=== PATIENT | male | born 1960 | race Caucasian/White ===

== ENCOUNTER 2019-02-03 10:01 | Emergency (ER) | payer MEDICAID ==
[~2019-02-03] VITALS: Ht 167.6 cm; Wt 90.7 kg
--- NOTE | 2019-02-03 10:23 | NUR ---
Patient ambulated to bed 8. RN evaluating patient at bedside.
[2019-02-03 10:25] VITALS: BP 103/45
--- NOTE | 2019-02-03 10:30 | NUR ---
PATIENT PRESENTS TO ED WITH C/O DIZZINESS WITH CHEST DISCOMFORT X 1 DAY. DIZZINESS GET WORSE WHEN WALKING. DENIES PMH . LUNGS CLEAR BL; HR EVEN AND REGULAR; DENIES PAIN VSS; PATIENT POSITIONED FOR COMFORT; HOB ELEVATED; BEDRAILS UP X2; BED DOWN. ER MD MADE AWARE OF PT STATUS.
--- NOTE | 2019-02-03 11:50 | NUR ---
Patient being evaluated by physician at bedside.
[2019-02-03] MEDS ORDERED: NACL 0.9% 1,000 ML IV ONE (12:00)
[2019-02-03] MEDS ORDERED: KETOROLAC 30 MG/ML VIAL IVP ONE (12:00)
--- NOTE | 2019-02-03 12:06 | NUR ---
data technician at bedside.
[2019-02-03 12:43] LABS: BASOPHILS % (AUTO) 0.4 % (0.0-2.0); EOSINOPHILS # (AUTO) 0.1 K/uL (0-0.4); EOSINOPHILS % (AUTO) 1.4 % (0.0-4.0); HEMATOCRIT 48.5 % (36-52); HEMOGLOBIN 15.7 g/dL (12.0-18.0); LYMPHOCYTES # (AUTO) 2.3 K/uL (2.0-11.5); LYMPHOCYTES % (AUTO) 23.8 % (20.5-51.1); MEAN CORPUSCULAR HEMOGLOBIN 27 pg (27-31); MEAN CORPUSCULAR HGB CONC 32 g/dL (33-37); MEAN CORPUSCULAR VOLUME 82.9 fL (80-94); MONOCYTES # (AUTO) 0.9 K/uL (0.8-1.0); MONOCYTES % (AUTO) 8.8 % (1.7-9.3); NEUTROPHILS # (AUTO) 6.5 K/uL (1.8-7.7); NEUTROPHILS % (AUTO) 65.6 % (42.2-75.2); PLATELET COUNT (AUTO) 248 K/uL (140-450); RED BLOOD CELL COUNT(AUTO) 5.84 MIL/uL (4.20-6.10); RED CELL DISTRIBUTION WIDTH 15.4 % (11.6-13.7); WHITE BLOOD COUNT (AUTO) 9.8 K/uL (4.8-10.8)
--- NOTE | 2019-02-03 13:24 | NUR ---
NS BOLUS COMPLETED, PT IS ASLEEP IN BED, VSS, NO S/S OF PAIN, NO S/S OF DISTRESS.
[2019-02-03 13:51] LABS: ANION GAP 11.1 (8-16); CARBON DIOXIDE 30.1 mmol/L (21-32); CHLORIDE 104 mmol/L (98-107); GLUCOSE 113 mg/dL (74-106); POTASSIUM 4.2 mmol/L (3.5-5.1); SODIUM SERUM 141 mmol/L (136-145)
[2019-02-03 13:52] LABS: ASPARTATE AMINOTRANSFERASE 26 U/L (15-37); CREATININE 0.8 mg/dL (0.7-1.3); GFR ARICAN-AMERICAN 128 mL/min (>90); TOTAL BILIRUBIN 0.4 mg/dL (0.0-1.0); UREA NITROGEN, BLOOD 9 mg/dL (7-18)
[2019-02-03 13:53] LABS: ALBUMIN 3.9 g/dL (3.4-5.0); FREE T4 (FREE THYROXINE) 1.04 ng/dL (0.76-1.46)
[2019-02-03 14:32] LABS: APPEARANCE,URINE CLEAR (CLEAR); BILIRUBIN,URINE NEGATIVE (NEGATIVE); BLOOD, URINE NEGATIVE (NEGATIVE); COLOR,URINE YELLOW (YELLOW); LEUKOCYTE ESTERASE ,URINE NEGATIVE (NEGATIVE); NITRITE, URINE NEGATIVE (NEGATIVE); PH,URINE 6.5 (5.0-9.0); UGLUCOSE NEGATIVE (NEGATIVE)
--- NOTE | 2019-02-03 15:15 | NUR ---
FOOD PROVIDED, PT STATED HE IS HOMELESS, NOW HE HAS TO LIVE IN HIS CAR, HOMELESS RESOURSES PROVIDED, TRANSLATED BY GRISEL, PT VERBALIZED UNDERSTANDING AND WILL FIND [facility] HIMSELF AT THIS TIME.
--- NOTE | 2019-02-03 15:30 | NUR ---
AUTO DISMANTLER SPOKE TO PATIENT
[2019-02-03 15:38] VITALS: BP 143/84
--- NOTE | 2019-02-03 15:38 | NUR ---
Patient discharged with v/s stable. Written and verbal after care instructions given and explained. Patient verbalized understanding. Ambulatory with steady gait. All questions addressed prior to discharge. Advised to follow up with PMD.
== END 2019-02-03 15:38 | disposition home or self-care (01) ==
LOC: MED 10:01
DX: G44.209 Tension-type headache, unspecified, not intractable (principal); R42 Dizziness and giddiness
CPT/HCPCS: 36415; 71045; 80053; 81003; 84439; 84443; 84484; 85025; 93005; 96361; 96374; 99284; G0482; J1885; J7030; Q0092

== ENCOUNTER 2020-03-16 17:35 | Emergency (ER) | payer MEDICAID ==
[~2020-03-16] VITALS: Ht 167.6 cm; Wt 90.7 kg
[2020-03-16 17:35] VITALS: BP 140/93
--- NOTE | 2020-03-16 17:59 | NUR ---
MAY FROM THE STREETS, FOR EVALUATION S/P ETOH INTOXICATION. PT WAS FOUND ON COR[facility] OF [facility]. PT WAS FOUND ON THE FLOOR, BY STANDERS CALLED 911. PT HAS NO MEDICAL COMPLAINTS. PT NOTED WITH SLURRED SPEECH. PT ALSO NOTED WITH A LACERATION TO LEFT EYEBROW. NO ACTIVE BLEEDING AT THIS TIME. HX ETOH ABUSE
[2020-03-16 18:13] VITALS: BP 140/93
== END 2020-03-16 18:11 | disposition home or self-care (01) ==
LOC: MED 17:35
DX: S01.112A Laceration without foreign body of left eyelid and periocular area, initial encounter (principal); F10.129 Alcohol abuse with intoxication, unspecified; W18.39XA Other fall on same level, initial encounter; Y93.89 Activity, other specified; Y92.89 Other specified places as the place of occurrence of the external cause; Y99.8 Other external cause status; Y90.9 Presence of alcohol in blood, level not specified
CPT/HCPCS: 90715; 99282

== ENCOUNTER 2023-09-27 07:34 | Emergency (ER) | payer SELFPAY ==
[~2023-09-27] VITALS: Ht 172.7 cm; Wt 81.6 kg
[2023-09-27 07:44] VITALS: BP 120/74; PULSE 73; RESP 18; TEMP 97.3; O2SAT 98
[2023-09-27] MEDS: NACL 0.9% 1,000 ML IV ONE (08:04)
[2023-09-27 08:05] VITALS: BP 120/74; PULSE 71; RESP 18; TEMP 97.3
[2023-09-27 08:20] VITALS: O2SAT 98
== END 2023-09-27 16:03 | disposition home or self-care (01) ==
LOC: MED 07:34
DX: F10.129 Alcohol abuse with intoxication, unspecified (principal); Y90.9 Presence of alcohol in blood, level not specified
CPT/HCPCS: 96360; 99283; J7030